=== PATIENT | female | born 1970 ===

== ENCOUNTER → 2016-12-21 | Outpatient (CLI) | payer BC | LOC: COL.PUL 08:52 → COL.VAS 09:15 | DX: R06.02 Shortness of breath (principal); Z87.891 Personal history of nicotine dependence | CPT/HCPCS: J7674 ==

== ENCOUNTER → 2022-09-07 | Outpatient (CLI) | payer OTHER ==
[~2022-09-07] MED LIST: CARDIZEM 60MG T60 MG PO; HCTZ 25MG TAB25 MG PO; K-TAB20 PO; KAPSPARGO SPRIN25 MG PO; LIPITOR20 MG PO; NOVOLIN 70/30 710 ML SQ
[2022-09-07 15:05] LABS: CREATININE, serum 0.78 mg/dL (0.57-1.11)
== END ==
LOC: COL.LAB 14:07
PROVIDERS: Orthopaedic Surgery
DX: Z01.812 Encounter for preprocedural laboratory examination (principal)